=== PATIENT | female | born 1955 | race Caucasian/White ===

== ENCOUNTER 2019-10-16 09:07 | Outpatient (CLI) | payer MEDICARE, SELFPAY ==
--- NOTE | 2019-10-16 10:45 | NEURO_ITS ---
Patient Number: [id number] Impression: # Complains of no control of ankles. 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 # Clinical correlation recommended. Nerve Conduction Studies Anti Sensory Summary Table Stim Site NR Peak (ms) P-T Amp (?V) Site1 Site2 Delta-P (ms) Dist (cm) [place] (m/s) Left Sup Fibular Anti Sensory (Ant Lat Mall) 14 cm 3.6 15.2 14 cm Ant Lat Mall 3.6 16.0 44 Right Sup Fibular Anti Sensory (Ant Lat Mall) 14 cm 3.2 1.5 14 cm Ant Lat Mall 3.2 16.0 50 Left Sural Anti Sensory (Lat Mall) Calf 2.7 21.1 Calf Lat Mall 2.7 16.0 59 Right Sural Anti Sensory (Lat Mall) Calf 3.8 17.3 Calf Lat Mall 3.8 16.0 42 Motor Summary Table Stim Site NR Onset (ms) O-P Amp (mV) Site1 Site2 Delta-0 (ms) Dist (cm) [place] (m/s) Left Peroneal Motor (Vastus Med) Ankle 5.9 0.7 Popit Ankle 9.8 37.0 38 Popit 15.7 0.8 Right Peroneal Motor (Vastus Med) Ankle 6.6 1.5 Popit Ankle 8.6 33.0 38 Popit 15.2 0.8 Left Tibial Motor (Abd Flores Brev) Ankle 6.3 1.8 Knee Ankle 10.5 39.0 37 Knee 16.8 2.1 Right Tibial Motor (Abd Flores Brev) Ankle 6.0 1.1 Knee Ankle 10.3 38.0 37 Knee 16.3 0.7 F Wave Studies NR F-Lat (ms) L-R F-Lat (ms) Left Peroneal (Mrkrs) (EDB) 54.79 0.96 Right Peroneal (Mrkrs) (EDB) 55.74 0.96 Left Tibial (Mrkrs) (Abd Hallucis) 55.56 0.47 Right Tibial (Mrkrs) (Abd Hallucis) 55.09 0.47 EMG Side Muscle Nerve Root Ins Act Fibs Amp Dur Recrt Comment Right AntTibialis Dp Br Fibular L4-5 Nml Nml Nml Nml Nml Right Gastroc Tibial S1-2 Nml Nml Nml Nml Nml Right Fibularis Long Sup Br Fibular L5-S1 Nml Nml Nml Nml Nml Right Flex Dig Long Tibial L5-S2 Nml Nml Incr >12ms Reduced Right Ext Dig Brev Dp Br Fibular L5, S1 Nml Nml Incr >12ms Reduced Left AntTibialis Dp Br Fibular L4-5 Nml Nml Nml Nml Nml Left Gastroc Tibial S1-2 Nml Nml Nml Nml Nml Left Fibularis Long Sup Br Fibular L5-S1 Nml Nml Nml Nml Nml Left Flex Dig Long Tibial L5-S2 Nml Nml Incr >12ms Reduced Left Ext Dig Brev Dp Br Fibular L5, S1 Nml Nml Incr >12ms Reduced MTDD
== END 2019-10-16 09:08 | disposition home or self-care (01) ==
LOC: ANHNEURO 09:10
PROVIDERS: PCP Family Medicine; Visit Provider Podiatrist Foot & Ankle Surgery
DX: M62.81 Muscle weakness (generalized) (principal)
CPT/HCPCS: 95886; 95910

== ENCOUNTER 2021-09-21 15:50 | Outpatient (CLI) | payer MEDICARE, SELFPAY ==
--- NOTE | ~2021-09-21 | CT_ITS ---
EXAMINATION: CT abdomen pelvis wo con DATE: 09/21/2021 16:09 INDICATION: Left lower quadrant abdominal pain for 2 days TECHNIQUE: Computed tomography (CT) of the abdomen and pelvis was performed without intravenous contr ast. Automated exposure control and iterative reconstruction technique were employed. Exam dose: 213 .28 mGy-cm total exam DLP. COMPARISON: None. FINDINGS: The lung bases are clear. Normal heart size. No pericardial or pleural effusion. The liver, spleen, pancreas, adrenal glands and kidneys are unremarkable other than numerous calcific granulomas of the spleen and occasional calcified granulomas of the liver. The gallbladder is unrem arkable. No bile duct or pancreatic duct are of normal caliber. No renal mass lesion or urinary tract calculus. The urinary bladder is unremarkable. Normal caliber of the abdominal aorta. No intraperitoneal or retroperitoneal or pelvic mass lesion o r lymphadenopathy or ascites is detected. There is pericolic prominent fat stranding in the lower mid pelvis adjacent to a sigmoid diverticulu m, with thickening of the wall of the sigmoid colon, consistent with sigmoid diverticulitis. No absc ess is detected. No bowel obstruction or free air. Right sided spinal elen; prominent levoscoliosis of the lumbar and lower thoracic spine. IMPRESSION: Sigmoid diverticulitis; no abscess identified Reviewed, dictated and finalized at [facility]. Reviewed, dictated and finalized at location A.
== END 2021-09-21 15:51 | disposition home or self-care (01) ==
PROVIDERS: PCP Family Medicine; Visit Provider Nurse Practitioner Family
DX: R10.32 Left lower quadrant pain (principal); R50.9 Fever, unspecified; R19.8 Other specified symptoms and signs involving the digestive system and abdomen; K57.92 Diverticulitis of intestine, part unspecified, without perforation or abscess without bleeding
CPT/HCPCS: 74176

== ENCOUNTER 2021-11-19 11:03 | Day surgery (SDC) | payer MEDICARE, SELFPAY ==
[2021-11-02 12:09] VITALS: BMI 18.1
[2021-11-19 11:29] VITALS: BMI 18.3
[2021-11-19 11:30] VITALS: BP 160/92; PULSE 73; RESP 20; TEMP 37.5; O2SAT 99
--- NOTE | 2021-11-19 12:09 | P.PNAN_ITS ---
Anes - Initial Pre Proc Eval Procedure: Operation Date: 11/19/21 12:30 Proposed Procedures p Esophagogastroduodenoscopy - Jaswinder Booker MD Date/Time: 11/19/21 12:09 Surgeon: Jaswinder Booker MD Pre Op Diagnosis: Melena Patient Data Age: 66 Gender: F Height: 1.63 m Weight: 48.45 kg Allergies Allergy/AdvReac Type Severity Reaction Status Date / Time meperidine Allergy Mild rash Verified 11/19/21 11:28 Home Medications Medication Instructions Recorded Confirmed Type propranolol 80 mg tablet 40 mg PO Q12H #90 tabs 06/30/21 11/19/21 Rx sucralfate 1 gram tablet (Carafate) 1 g PO QID 10/20/21 11/19/21 History Patient hx anesthesia problems: none Family hx anesthesia problems: none Results Review: All pre-operative results and documents have been reviewed as part of the pre- operative evaluation. [facility] Past Medical History Medical History (Updated 11/19/21 @ 12:09 by Curly Horton MD) Diabetes Surgical History Surgical History (Updated 11/19/21 @ 12:09 by Curly Horton MD) H/O colonoscopy H/O craniotomy Family History Family History Sibling Family history of diabetes mellitus in first degree relative Father Family history of lung cancer Family history of pancreatic cancer Mother Family history of pancreatic cancer Social History Social History Social History: Smoking status: Never smoker Second hand tobacco smoke exposure: No Alcohol intake: never Substance use: never Substance use type: does not use Living arrangements: with family Gender identity (if verbalized by the patient): Female Sexual Orientation (if Verbalized by the Patient): Straight or Heterosexual Spiritual care concerns: No Anes - Eval Final PreProcedure Day of Procedure 11/19/21 12:09 Patient weight: thin Heart: regular rate and rhythm Lungs: clear to auscultation Neurological: alert and oriented Last oral intake: >/= 8 hours ASA classification: II Emergent: no Anesthetic plan: proceed Anesthesia type and monitoring: general GIVS and standard monitoring Results Review: All pre-operative results and documents have been reviewed as part of the pre- operative evaluation. Informed Consent: The patient's anesthetic plan and its attendant risks and benefits were discussed with the patient/family/POA. Questions were solicited and answers provided to the satisfaction of the patient/family/POA.
[2021-11-19] MEDS: LACTATED RINGERS 1,000 ML 150 ML IV CONT (12:13)
--- NOTE | 2021-11-19 12:32 | PM.IMHP ---
H&P: HPI History of Present Illness Date/Time: 11/19/21 12:32 Chief Complaint: Melena Narrative: this is a 66-year-old white female patient seen in evaluation at the request of Dr. Rl Baron. Patient has a history of passing black stools for 3 weeks. She ultimately developed chest pain while walking. She states it was tender in the lower chest wall. For this reason she went to the emergency room while in [place]. It was felt that she may have had bleeding was placed on Carafate. She states chest pain improved promptly. She is referred now for EGD. A CBC was performed and found to be normal. There was never any stool testing performed. Stools have now returned to normal color. Additionally patient gives a history of brief left lower quadrant discomfort which was felt to be diverticulitis she was placed on broad-spectrum antibiotics this has subsequently resolved. Patient has a past medical history of colonoscopy that was unremarkable. She presents today for EGD. She states current chest pain has resolved. She has no dysphagia. No fevers. Review of Systems Review of Systems: Review of systems noncontributory. [facility] Past Medical History Medical History (Updated 11/19/21 @ 12:35 by Jaswinder Booker MD) Diabetes Surgical History Surgical History (Updated 11/19/21 @ 12:09 by Curly Horton MD) H/O colonoscopy H/O craniotomy Family History Family History Sibling Family history of diabetes mellitus in first degree relative Father Family history of lung cancer Family history of pancreatic cancer Mother Family history of pancreatic cancer Social History Social History Social History: Smoking status: Never smoker Second hand tobacco smoke exposure: No Alcohol intake: never Substance use: never Substance use type: does not use Living arrangements: with family Gender identity (if verbalized by the patient): Female Sexual Orientation (if Verbalized by the Patient): Straight or Heterosexual Spiritual care concerns: No Meds Home Medications and Allergies Home Medications Medication Instructions Recorded Confirmed Type propranolol 80 mg tablet 40 mg PO Q12H #90 tabs 06/30/21 11/19/21 Rx sucralfate 1 gram tablet (Carafate) 1 g PO QID 10/20/21 11/19/21 History Allergies Allergy/AdvReac Type Severity Reaction Status Date / Time meperidine Allergy Mild rash Verified 11/19/21 11:28 Vital Signs Vital Signs - 24 hr 11/19/21 11:30 Temperature 99.5 F Pulse Rate 73 Respiratory Rate 20 Blood Pressure 160/92 H Pulse Oximetry 99 Exam Narrative: Physical exam reveals patient to be alert. Vital signs stable. HEENT exam is unremarkable. Patient is anicteric. Lungs are clear to auscultation and percussion. Heart is without murmur or extra sounds. Abdomen bowel sounds present soft nontender with no organomegaly. Digital external rectal exam deferred today. Assessment and Plan Assessment and plan (1) Dark stools: Code(s): R19.5 - Other fecal abnormalities Status: Acute Assessment and Plan: Patient gives a history of black stools that lasted for 3 weeks. Despite a normal CBC. Concern is this may represent melena or GI blood loss. Because of atypical chest pain an EGD is requested will be performed. (2) Atypical chest pain: Code(s): R07.89 - Other chest pain Status: Acute Assessment and Plan: Patient complains of lower substernal chest tenderness that now resolved. Appeared to improve after eating placed on Carafate. Plan is for EGD to exclude organic disease.
[2021-11-19 12:34] VITALS: BP 127/68; PULSE 70; RESP 16; O2SAT 99
[2021-11-19 12:44] VITALS: BP 131/74; PULSE 70; RESP 13; O2SAT 97
--- NOTE | 2021-11-19 12:46 | WPDANESPN ---
Anes - Prog Note Post-Op Date/Time: 11/19/21 12:46 Cardiovascular status: normal Respiratory status: normal Airway patency: baseline Mental status: baseline Post-Op hydration status: normal Vital Signs: Last Vital Signs Temp 37.5 C 11/19/21 11:30 Pulse 70 11/19/21 12:34 Resp 16 11/19/21 12:34 BP 127/68 11/19/21 12:34 Pulse Ox 99 11/19/21 12:34 O2 Del Method Room Air 11/19/21 12:34 Pain Score (VAS): 0/10 I/O: Intake & Output 11/18/21 11/19/21 11/19/21 23:59 07:59 15:59 Intake Total 250 Balance 250 Patient Feedback: Patient satisfied with anesthetic care.
[2021-11-19 12:54] VITALS: BP 131/74; PULSE 66; RESP 14; O2SAT 100
== END 2021-11-19 13:12 | disposition home or self-care (01) ==
PROVIDERS: PCP Family Medicine; Visit Provider Internal Medicine Gastroenterology
PROC: 0DJ08ZZ Inspection of Upper Intestinal Tract, Via Natural or Artificial Opening Endoscopic (ICD-10-PCS; CPT 43235; principal; 2021-11-19 12:30)
DX: K92.1 Melena (principal); R07.89 Other chest pain
CPT/HCPCS: 43235

== ENCOUNTER 2022-03-01 09:29 | Day surgery (SDC) | payer MEDICARE, SELFPAY ==
[2022-02-09 12:32] VITALS: BMI 18.3
[2022-02-15 15:05] VITALS: BMI 18.0
[2022-03-01 10:00] VITALS: BP 161/93; PULSE 65; RESP 20; TEMP 36.7; O2SAT 99
--- NOTE | 2022-03-01 10:12 | WPDANESEPPF ---
Anes - Initial Pre Proc Eval Procedure: Operation Date: 03/01/22 11:15 Proposed Procedures p Diagnostic Colonoscopy - Jsawinder Booker MD Date/Time: 03/01/22 10:12 Surgeon: Jaswinder Booker MD Pre Op Diagnosis: CIBH, LLQ abdominal pain, Abnormal weight loss Patient Data Age: 66 Gender: F Height: 1.63 m Weight: 47.6 kg Last Vital Signs Temp 36.7 C 03/01/22 10:00 Pulse 65 03/01/22 10:00 Resp 20 03/01/22 10:00 BP 161/93 H 03/01/22 10:00 Pulse Ox 99 03/01/22 10:00 O2 Del Method Room Air 03/01/22 10:00 Allergies Allergy/AdvReac Type Severity Reaction Status Date / Time meperidine Allergy Mild rash Verified 03/01/22 10:03 Home Medications Medication Instructions Recorded Confirmed Type propranolol 80 mg tablet 40 mg PO Q12H #90 tabs 06/30/21 03/01/22 Rx sodium,potassium,mag sulfates 17.5 See Rx Instructions PO .COMPLEX 02/09/22 03/01/22 Rx gram-3.13 gram-1.6 gram oral soln #354 mL (Suprep Bowel Prep Kit) Patient hx anesthesia problems: none Family hx anesthesia problems: none Results Review: All pre-operative results and documents have been reviewed as part of the pre-operative evaluation. [facility] Past Medical History Medical History (Updated 03/01/22 @ 10:12 by Curly Horton MD) Colon cancer screening Diabetes Family history of pancreatic cancer Hx of diverticulitis of colon Meningioma Surgical History Surgical History H/O colonoscopy H/O craniotomy Family History Family History Sibling Family history of diabetes mellitus in first degree relative Father Family history of lung cancer Family history of pancreatic cancer Mother Family history of pancreatic cancer Social History Social History Social History: Smoking status: Never smoker Second hand tobacco smoke exposure: No Alcohol intake: never Substance use: never Substance use type: does not use Living arrangements: with family Gender identity (if verbalized by the patient): Female Sexual Orientation (if Verbalized by the Patient): Straight or Heterosexual Spiritual care concerns: No Anes - Eval Final PreProcedure Day of Procedure 03/01/22 10:12 Patient weight: thin Heart: regular rate and rhythm Lungs: clear to auscultation Airway: Mallampati scale class II Neurological: alert and oriented Last oral intake: >/= 8 hours ASA classification: II Emergent: no Anesthetic plan: proceed Anesthesia type and monitoring: general GIVS and standard monitoring Results Review: All pre-operative results and documents have been reviewed as part of the pre-operative evaluation. Informed Consent: The patient's anesthetic plan and its attendant risks and benefits were discussed with the patient/family/POA. Questions were solicited and answers provided to the satisfaction of the patient/family/POA.
[2022-03-01] MEDS: LACTATED RINGERS 1,000 ML 150 ML IV CONT (10:26)
--- NOTE | 2022-03-01 10:40 | WPDHPUPDATE1 ---
History and Physical Update Update Date/Time: 03/01/22 10:40 History and Physical has been reviewed, including an updated exam of the patient. There are NO changes in the patient's condition. Risks, benefits, and alternatives have been discussed and questions answered. Patient agrees to proceed with procedure.
[2022-03-01 11:06] VITALS: BP 135/72; PULSE 69; RESP 16; O2SAT 96
[2022-03-01 11:16] VITALS: BP 135/72; PULSE 75; RESP 20; O2SAT 99
--- NOTE | 2022-03-01 11:21 | WPDANESPN ---
Anes - Prog Note Post-Op Date/Time: 03/01/22 11:21 Cardiovascular status: normal Respiratory status: normal Airway patency: baseline Mental status: baseline Post-Op hydration status: normal Vital Signs: Last Vital Signs Temp 36.7 C 03/01/22 10:00 Pulse 65 03/01/22 10:00 Resp 20 03/01/22 10:00 BP 161/93 H 03/01/22 10:00 Pulse Ox 99 03/01/22 10:00 O2 Del Method Room Air 03/01/22 10:00 Pain Score (VAS): 0/10 I/O: Intake & Output 02/28/22 03/01/22 03/01/22 23:59 07:59 15:59 Intake Total 300 Balance 300 Patient Feedback: Patient satisfied with anesthetic care.
[2022-03-01 11:26] VITALS: BP 135/72; PULSE 72; RESP 20; O2SAT 99
== END 2022-03-01 11:47 | disposition home or self-care (01) ==
PROVIDERS: PCP Family Medicine; Visit Provider Internal Medicine Gastroenterology
PROC: 0DJD8ZZ Inspection of Lower Intestinal Tract, Via Natural or Artificial Opening Endoscopic (ICD-10-PCS; CPT 45378; principal; 2022-03-01 11:15)
DX: K59.00 Constipation, unspecified (principal)
CPT/HCPCS: 45378

== ENCOUNTER 2022-05-28 11:59 | Outpatient (CLI) | payer MEDICARE, SELFPAY ==
--- NOTE | ~2022-05-28 | US_ITS ---
EXAMINATION: US venous doppler LE RT DATE: 05/28/2022 12:37 INDICATION: Right lower limb pain TECHNIQUE: Grayscale ultrasound images without and with compression and Doppler ultrasound images of the right lower extremity veins were obtained. COMPARISON: None. FINDINGS: The visualized portions of right common femoral vein, profunda (deep) femoral vein, femoral vein, pop liteal vein, peroneal trunk, posterior tibial veins, peroneal veins, gastrocnemius vein and greater s aphenous vein outflow are patent. IMPRESSION: 1. No deep venous thrombosis in the right lower limb. Reviewed, dictated and finalized at location A. TER
--- NOTE | ~2022-05-28 | XR_ITS ---
XR lumbar spine 2-3V 05/28/2022 15:06 Indication: Back pain. Procedure: 3 views lumbar spine Comparison: CT dated 09/21/2021 Findings: There is a Venegas leen overlying the lower thoracic and lumbar spine. There is stable le voscoliosis. No acute fracture or traumatic malalignment. Sacral foramen are symmetric. There is hete rotopic ossification lateral to the upper lumbar spine with marginal osteophytes at multiple levels. There are severe facet hypertrophy. Impression: 1: Mild-moderate lumbar spondylosis with levoscoliosis. Reviewed, dictated and finalized at location [facility]. H TECHNICIAN Impression: 1: Mild-moderate lumbar spondylosis with levoscoliosis.
--- NOTE | ~2022-05-28 | XR_ITS ---
EXAMINATION: XR hip BI 2V w AP pelvis DATE: 05/28/2022 15:06 INDICATION: Hip pain. TECHNIQUE: An anteroposterior view of the pelvis and 2 views of each hip were obtained. COMPARISON: None. FINDINGS: Bone alignment is normal. No fracture. There is mild osteoarthritis of the hips. There is l evoscoliosis of lumbar spine with elen fixation. IMPRESSION: 1. Mild osteoarthritis of the hips. Reviewed, dictated and finalized at location A. OF CUSTOMER EXPERIENCE STRATEGY
== END 2022-05-28 12:00 | disposition home or self-care (01) ==
PROVIDERS: PCP Family Medicine; Visit Provider Physician Assistant
DX: M79.604 Pain in right leg (principal); M16.0 Bilateral primary osteoarthritis of hip; M47.892 Other spondylosis, cervical region
CPT/HCPCS: 72100; 73521; 93971

== ENCOUNTER 2022-07-02 08:18 | Outpatient (CLI) | payer MEDICARE, SELFPAY ==
--- NOTE | ~2022-07-02 | NM_ITS ---
EXAMINATION: NM yadira stress w perfusion DATE: 07/02/2022 10:18 INDICATION: Other chest pain. TECHNIQUE: Rest images were obtained following intravenous administration of 10.5 mCi Tc99m tetrofosm in (Myoview). The patient was infused intravenously with Lexiscan (regadenoson). Then, 33.66 mCi Tc99 m tetrofosmin (Myoview) was administered intravenously, and stress images were obtained. Data was rec onstructed into short axis and horizontal and vertical long axis SPECT images. Gated SPECT images wer e also obtained. COMPARISON: CT abdomen and pelvis 09/21/2021 FINDINGS: There is no definite reversible or fixed perfusion abnormality to suggest ischemia or infar ction. There is no segmental wall motion abnormality. Left ventricular ejection fraction measures > 70%. IMPRESSION: 1. No definite ischemia or infarct. 2. Normal left ventricular ejection fraction measuring >70%. Reviewed, dictated and finalized at location A.
--- NOTE | 2022-07-02 08:24 | EST_ITS ---
Patient Info Name: Shira Sue Age: 67 years : 1955 Gender: Female Ht: 64 in Wt: 105 lbs BSA: 1.46 m2 HR: 76 bpm BP: 160 / 70 mmHg Heart Rhythm: Sinus Rhythm Exam Date: 07/02/2022 9:13 AM Exam Location: [facility] Stress Patient Status: Outpatient Admit Date: 07/02/2022 Staff Ordering Physician: Adela Fraser PA-C Attending Provider: Adela Fraser PA-C Exercise Technologist: Jana Meléndez CT Exercise Physician: Ashish Ace DO Exam Type: CA stress yadira w NM Study Info Indications R07.89 - Other chest pain A regadenoson stress test was performed. Summary 1. 1. Negative lexiscan stress test for ischemic ST changes by ECG criteria. 2. 2. Baseline hypertension. 3. 3. Nuclear scan to follow and will be reported separately. Please correlate with it. 4. 4. Patient informed of the above results. Protocol: Lexiscan Stress ECG Details Stage: REST Duration (min): 9 min : 25 sec HR (bpm): 80 SBP (mmHg): --- DBP (mmHg): --- Stage: REST Duration (min): 11 min : 22 sec HR (bpm): 74 SBP (mmHg): --- DBP (mmHg): --- Stage: STAGE 1 Duration (min): 0 min : 59 sec HR (bpm): 79 SBP (mmHg): --- DBP (mmHg): --- Stage: RECOVERY Duration (min): 1 min : 0 sec HR (bpm): 106 SBP (mmHg): --- DBP (mmHg): --- Stage: RECOVERY Duration (min): 2 min : 0 sec HR (bpm): 116 SBP (mmHg): --- DBP (mmHg): --- Stage: RECOVERY Duration (min): 3 min : 0 sec HR (bpm): 111 SBP (mmHg): --- DBP (mmHg): --- Stage: RECOVERY Duration (min): 4 min : 0 sec HR (bpm): 104 SBP (mmHg): --- DBP (mmHg): --- Stage: RECOVERY Duration (min): 4 min : 19 sec HR (bpm): 105 SBP (mmHg): --- DBP (mmHg): --- Rest HR: 74 bpm Peak HR: 119 bpm Rest Sys BP: 160 mmHg Peak Sys BP: 160 mmHg Max Pred HR: 151 bpm % Max Pred HR: 79 % Target HR: 128 bpm Max RPP: 19,040 bpm*mmHg Termination Reason: Completed protocol Cardiac Symptoms: Shortness of breath Total Time: 1 min : 0 sec Rest Allison BP: 70 mmHg Peak Allison BP: 72 mmHg Total Dose: 0.4 mg Resting ECG Sinus rhythm, cannot r/o septal infarct, age indeterminate, borderline T wave in high lateral leads. Stress ECG No ST changes. Arrhythmias None. Report Signatures
== END 2022-07-02 08:19 | disposition home or self-care (01) ==
PROVIDERS: PCP Family Medicine; Visit Provider Physician Assistant
DX: R07.89 Other chest pain (principal)
CPT/HCPCS: 78452; 93017; A9502; J2785

== ENCOUNTER → 2023-05-23 13:00 | Outpatient (CLI) | payer MEDICARE, SELFPAY ==
--- NOTE | ~2023-05-23 | MM_ITS ---
EXAMINATION: MM screening ana BI w aung HISTORY: Screening TECHNIQUE: Craniocaudal and mediolateral oblique 3-D tomosynthesis images were obtained and synthetic 2-D images were generated. CAD analysis was submitted and interpreted. COMPARISON: Comparison to multiple prior studies sequentially, with oldest reviewed study dated 04/24. BREAST PARENCHYMAL COMPOSITION: Dense: The breasts are heterogeneously dense, which may obscure small masses FINDINGS: There is no evidence of suspicious mass, calcification, or architectural distortion to sugg est malignancy in either breast. There has been no suspicious interval change. IMPRESSION: 1. No mammographic evidence of malignancy. 2. Recommend routine screening mammography in one year. BI-RADS Category 1: Negative Reviewed, dictated and finalized at location A. PRODUCTION FIELD SUPERVISOR
== END ==
PROVIDERS: PCP Family Medicine; Visit Provider Physician Assistant
DX: Z12.31 Encounter for screening mammogram for malignant neoplasm of breast (principal)
CPT/HCPCS: 77063; 77067

== ENCOUNTER 2024-01-05 13:29 | Outpatient (CLI) | payer MEDICARE, SELFPAY ==
--- NOTE | 2024-01-05 13:47 | ECHO_ITS ---
Patient Info Name: Shira Sue Age: 68 years : 1955 Gender: Female Ht: 64 in Wt: 113 lbs BSA: 1.52 m2 HR: 70 bpm BP: 136 / 8 mmHg Technical Quality: Fair Exam Date: 01/05/2024 2:03 PM Exam Location: [facility] Patient Status: Outpatient Admit Date: 01/05/2024 Staff Ordering Physician: Jazzmine Paul PA-C Dedicated Regional Driver: Sandeep Pacheco RDCS Attending Provider: Jazzmine Paul PA-C Exam Type: CA echo doppler color flow Study Info Indications R55 - Syncope and collapse I34.1 - Nonrheumatic mitral (valve) prolapse Complete two-dimensional, color flow and Doppler transthoracic echocardiogram is performed. Summary 1. Complete two-dimensional, color flow and Doppler transthoracic echocardiogram is performed. 2. Left ventricular chamber dimension is normal. 3. Left ventricular systolic function is normal, estimated at 65-70%. 4. The left ventricular diastolic function is grade I diastolic dysfunction. 5. E/e' 9 is minimally elevated. 6. There is mild aortic valve sclerosis. 7. There is mild mitral valve regurgitation. 8. There is trace tricuspid valve regurgitation. 9. No pulmonary hypertension, estimated pulmonary arterial systolic pressure is 37 mmHg. Left Ventricle E/e' 9 is minimally elevated. Left ventricular chamber dimension is normal. Left ventricular systolic function is normal, estimated at 65-70%. The left ventricular diastolic function is grade I diastolic dysfunction. Right Ventricle Right ventricular systolic function is normal and with normal TAPSE 2.3 cm. Right ventricular chamber dimension is normal. Left Atria Left atrial chamber dimension is normal. Right Atria Right atrial chamber dimension is normal. Aortic Valve The aortic valve is trileaflet. There is mild aortic valve sclerosis. There is no aortic valve stenosis. There is no aortic valve regurgitation. Pulmonic Valve There is no pulmonic regurgitation. Mitral Valve No mitral valve prolapse. There is no mitral valve stenosis. There is mild mitral valve regurgitation. Tricuspid Valve There is trace tricuspid valve regurgitation. No pulmonary hypertension, estimated pulmonary arterial systolic pressure is 37 mmHg. Pericardium/Pleural There is no pericardial effusion. Inferior Vena Cava Normal inferior vena cava with >50% collapse upon inspiration consistent with normal right atrial pressure, 5 mmHg. Aorta The aortic root size at the sinus of Valsalva is normal. Left Ventricular Outflow Tract Name Value Normal LVOT 2D LVOT Diameter 1.9 cm LVOT Doppler LVOT Peak Gradient 5 mmHg LVOT Mean Gradient 2 mmHg LVOT VTI 25 cm LVOT VTI/AV VTI Ratio 0.9 LVOT Stroke Volume 69 ml LVOT CO 4.4 l/min LVOT CI 2.9 l/min/m2 Pulmonic Valve Name Value Normal PV Doppler
--- NOTE | 2024-01-09 16:19 | WPDHOLTEREM ---
Holter/Event Monitor Holter/Event Monitor Date of procedure: 01/05/24 Holter/Event Procedure: 48 Hr Holter Monitor Indications: Syncope Conclusion: 1. 48 hour holter monitor on 01/05/24. 2. Underlying rhythm is sinus rhythm. HR range 54-140 bpm; average HR 85 bpm. HR at 140 bpm was at 09:51. 3. There are 23 premature supraventricular complexes. No supraventricular tachycardia. 4. There are 6 premature ventricular complexes. No ventricular tachycardia. 5. No sinoatrial or atrioventricular blocks. No significant pauses greater than 2 seconds. 6. No symptoms available for correlation.
== END 2024-01-05 13:30 | disposition home or self-care (01) ==
PROVIDERS: PCP Family Medicine; Visit Provider Physician Assistant Medical
DX: I50.30 Unspecified diastolic (congestive) heart failure (principal); I08.3 Combined rheumatic disorders of mitral, aortic and tricuspid valves; R55 Syncope and collapse
CPT/HCPCS: 93225; 93226; 93306

== ENCOUNTER 2024-11-01 18:30 | Emergency (ER) | payer MEDICARE, SELFPAY ==
--- NOTE | 2024-11-01 18:31 | ED_ITS ---
HPI - URI/Sore Throat General Chief Complaint: Ear Stated Complaint: EARS CLOGGED/HEADACHE Time Seen by Provider: 11/01/24 18:31 Source: patient Mode of arrival: ambulatory Limitations: no limitations History of Present Illness HPI Narrative: Patient is a 69-year-old female who presents with dull headache, congestion for 2 weeks. Reports ears foot clogged this morning. Has tried [id number] medications with no relief. Denies any fever, chills, nausea, vomiting, diarrhea. Related Data Allergies Allergy/AdvReac Type Severity Reaction Status Date / Time meperidine Allergy Mild rash Verified 02/14/24 09:51 Review of Systems Review of Systems: All systems reviewed & are unremarkable except as noted in HPI and below Constitutional: Constitutional: Denies chills, Denies fatigue, Denies fever(s), Reports headache(s), Denies malaise and Denies weakness Eyes: Eyes: Denies blurry vision, Denies itchy eyes and Denies loss of vision ENT: Reports otalgia, Denies headache(s), Reports nasal congestion, Denies sinus pain and Denies sore throat Cardiovascular: Cardiovascular: Denies chest pain, Denies irregular heart rhythm and Denies dyspnea Respiratory: Respiratory: Denies cough and Denies dyspnea Gastrointestinal: Gastrointestinal: Denies abdominal pain, Denies diarrhea, Denies nausea and Denies vomiting Musculoskeletal: Musculoskeletal: Denies back pain, Denies myalgias and Denies arthralgias Integumentary/Breasts: Skin/Breast: Denies pruritus and Denies rash Neurologic: Denies headache(s), Denies loss of vision and Denies weakness Psychiatric: Psychiatric: Reports no additional psychiatric complaints Endocrine: Endocrine: Denies fatigue Allergic/Immunologic: Allergic/Immunologic: Denies itchy eyes PMFSH Past Medical History Medical History Hypertension Irritable bowel syndrome with constipation Meningioma Colon cancer screening Family history of pancreatic cancer Hx of diverticulitis of colon Diabetes Surgical History Surgical History History of bilateral cataract extraction H/O colonoscopy H/O craniotomy Family History Family History Sibling Family history of diabetes mellitus in first degree relative Father Family history of lung cancer Family history of pancreatic cancer Mother Family history of pancreatic cancer Social History Social History Social History: Caffeine-coffee Smoking status: Never smoker Second hand tobacco smoke exposure: No Alcohol intake: never Substance use: never Substance use type: does not use Lack of Transportation: No Lack of Food: Never True Current Housing: I Have Housing Concerned About Future Housing: No Difficulty Paying Gas/Electric Bills: No Difficulty Paying for Meds: No Currently Unemployed: No Education: Bachelor's Degree Difficulty w/ Childcare or Family Care: No Living arrangements: with family Occupation/Education: retired Gender identity (if verbalized by the patient): Female Sexual Orientation (if Verbalized by the Patient): Straight or Heterosexual Spiritual care concerns: No Comments At time of signature, agree with nursing past medical, surgical, social and family history. There is no relevant family history pertinent to the presenting complaint. Exam Const: General: cooperative, healthy appearing, comfortable, no acute distress and well nourished Nutritional Appearance: well nourished Orientation/consciousness: patient oriented x3 Limitations: no limitations HENMT: Head: normal to inspection, normocephalic and atraumatic Ears: hearing grossly normal bilaterally, external ears normal, no periauricular adenopathy, Abnormal EAC present edema bilateral (left worse than right), EAC tenderness bilateral and otic discharge purulent bilateral and unable to visualize TM bilaterally Face/Nose/Sinus: Normal external nose present, Abnormal mucous membranes and turbinates present erythematous bilateral and diffuse, normal facial exam and face symmetric Face and sinus: normal facial exam, face symmetric and sinus tenderness frontal Mouth: Yes Normal oral and palatal mucosa present, Yes lip normal, Yes tongue normal, Yes Normal salivary glands and ducts present, Yes oropharynx normal and Yes moist mucous membranes Teeth and gingiva: dentition normal Throat: posterior oropharynx normal, tonsils normal and uvula midline Eyes: General: appearance normal, both eyes and all related structures Alignment and Position: alignment normal and position normal Periorbital: periorbital findings normal Eyelids: eyelids normal Pupils: Equal, round and reactive pupils present Neck: Neck: normal visual inspection, full ROM, no lymphadenopathy and supple Chest: Chest palpation & inspection: normal inspection of the chest and normal palpation of entire chest wall Resp: Effort & Inspection: normal respiratory effort and able to speak in complete sentences Auscultation: clear to auscultation bilaterally, no crackles, no rales, no rhonchi and no wheezes Cardio: Rate: regular rate Rhythm: regular rhythm Heart sounds: S1 normal heart sound present and S2 normal heart sound present GI: Inspection: normal to inspection Skin: General skin exam: normal color and no rashes or lesions noted Neuro: General: patient oriented x3 and moves all extremities Cranial nerves: Yes Equal, round and reactive pupils present Speech: normal speech Gait exam (Neuro): Normal gait present Extrem: General: normal to inspection, full ROM and no edema Psych: Appearance: grossly normal and well kempt Mental Status: mental status grossly normal Speech and movement: Normal speech and movement present Affect: normal affect Attitude: cooperative Thought process: Normal thought process present Course Course Emergency Course: Discharge instructions reviewed with patient, as well as provided in writing per nursing staff. The instructions also include specific and strict return/GO TO THE ER as well as f/u information. All questions have been answered, and the patient deny any further questions with discharge and discharge plan. Portions of this record may have been created with voice recognition software Level of Care: Express Care Visit Vital Signs Vital signs: Vital Signs Temperature 36.2 C L 11/01/24 18:41 Pulse Rate 94 11/01/24 18:41 Respiratory Rate 16 11/01/24 18:41 Blood Pressure 147/87 H 11/01/24 18:41 Pulse Oximetry 99 11/01/24 18:41 Temperature 36.2 C L 11/01/24 18:41 Pulse Rate 94 11/01/24 18:41 Respiratory Rate 16 11/01/24 18:41 Blood Pressure 147/87 H 11/01/24 18:41 Pulse Oximetry 99 11/01/24 18:41 Reviewed MDM - URI/Sore Throat MDM Narrative Medical decision making narrative: Ear wax placed in each ear to aid in the distribution of antibiotic ear drops. Pt well hydrated appearing, in no respiratory distress, hemodynamically stable. Recommend supportive care. The patient is stable at time of discharge the clinical impression was discussed and the patient was given the opportunity to ask questions, which were addressed as completely as possible given the information available at present. Anticipatory guidance and return to care precautions were discussed and the importance of primary care follow-up was stressed and encouraged. The patient voiced understanding of the plan, indications to return, and the need for follow-up. Exam findings show no acute concerns or changes Patient is appropriate for outpatient treatment and follow-up. Differential diagnosis considered: Xavier virus, strep pharyngitis, allergic rhinitis, upper respiratory tract infection, sinusitis, rhinosinusitis, nasopharyngitis. viral pharyngitis, otitis media, otitis externa, otitis effusion, foreign body, cerumen impaction, viral syndrome, and influenza.? Medical Records Attestation: I reviewed the patient's medical records. Discharge Plan Discharge Clinical Impression: Otitis externa Qualifiers: Otitis externa type: unspecified type Chronicity: acute Laterality: bilateral Qualified Code(s): H60.503 - Unspecified acute noninfective otitis externa, bilateral Sinusitis Qualifiers: Sinusitis location: frontal Chronicity: acute Recurrence: non-recurrent Qualified Code(s): J01.10 - Acute frontal sinusitis, unspecified Patient Disposition: Home Condition: Stable Instructions: Sinusitis (ED), Swimmer's Ear (GEN) Additional Instructions: Symptomatic treatment of a sinus infection aims to relieve symptoms. These treatments do not shorten the duration of illness. Nonprescription pain medications, such as acetaminophen (eg, Tylenol) or ibuprofen (eg, Motrin, Advil), are recommended for pain. Flushing the nose and sinuses with a saline solution several times per day has been proven to decrease pain associated with congestion and shorten the duration of symptoms. Nasal steroids (such as Flonase, 2 sprays in each nostril daily) can help to reduce swelling inside the nose, usually within two to three days. These drugs have few side effects and relieve symptoms in most people. Oral decongestants (pseudoephedrine and phenylephrine) may be helpful if you have associated symptoms of ear pain or fullness. Nasal decongestant sprays, including oxymetazoline (Afrin) and phenylephrine (Kasi-Synephrine), can be used to temporarily treat congestion. However, these sprays should not be used for more than two to three days due to the risk of rebound congestion (when the nose becomes congested constantly unless the medication is used repeatedly), possible addiction, and long-term consequences of frequent use, including persistent nasal dryness and crusting, which is very difficult to treat once it has developed. Medications to thin secretions (such as guaifenesin) may help to clear mucus. Please follow-up with your primary care doctor in the next 1-2 days. If you cannot follow-up with your primary care doctor please go to the ED for any urgent issues. If you have any worsening of symptoms or any other concerns please go to the ED immediately. -Ear drops as directed for 7-10 days until the pain and swelling are gone. -When administer drug into the affected ear; make sure to lay down with the affected ear facing upward, message the ear canal to help the drops reach the medial end of the canal, then remain in that position for at least 5 minutes. -Avoid using cotton tipped applicator for ears cleaning -Avoid exposing swimming or exposing the affected ear to water during the treatment period Take or alternate tylenol or ibuprofen every 4 - 6 hours if needed for pain. Follow up with primary care provider if condition is not improving in 7 days or sooner if there is new concern. Patient Language: Micronesian Prescriptions: New ofloxacin 0.3 % drops 10 drp EACH EAR Q12H 7 Days Qty: 10 1RF amoxicillin-pot clavulanate 875-125 mg tablet 1 tablet PO Q12H 10 Days Qty: 20 0RF No Action propranolol 80 mg tablet 80 mg PO Q12H Qty: 180 1RF Follow-up/Referrals: Rl Baron MD [Primary Care Provider] - 3 Days Time of Disposition: 19:09
[2024-11-01 18:41] VITALS: BP 147/87; PULSE 94; RESP 16; TEMP 36.2; O2SAT 99
== END 2024-11-01 19:16 | disposition home or self-care (01) ==
PROVIDERS: Emergency Provider Nurse Practitioner Family; PCP Family Medicine
DX: H60.503 Unspecified acute noninfective otitis externa, bilateral (principal); J01.10 Acute frontal sinusitis, unspecified; I10 Essential (primary) hypertension; E11.9 Type 2 diabetes mellitus without complications
CPT/HCPCS: 99213; G0463

== ENCOUNTER 2025-01-10 09:20 | Outpatient (CLI) | payer MEDICARE, SELFPAY ==
--- NOTE | ~2025-01-10 | XR_ITS ---
EXAMINATION: XR knee LT 3V, 01/10/2025 10:15 CDT HISTORY: LT KNEE PAIN SWELLING SINCE TUESDAY COMPARISON: No comparisons available. Findings: No acute fracture or malalignment. No significant degenerative changes. Soft tissues unremarkable. Impression: No acute fracture or malalignment. Reviewed, dictated and finalized at location P. Impression: No acute fracture or malalignment.
--- NOTE | ~2025-01-10 | US_ITS ---
EXAMINATION: US venous doppler [facility] DATE: 01/10/2025 10:20 INDICATION: Left lower limb pain and swelling TECHNIQUE: Grayscale ultrasound images without and with compression and Doppler ultrasound images of the left lower extremity veins were obtained. COMPARISON: None. FINDINGS: The visualized portions of left common femoral vein, profunda (deep) femoral vein, femoral vein, popliteal vein, peroneal veins, posterior tibial veins, gastrocnemius vein and greater saphenous vein outflow are patent. Moderate-sized left knee joint effusion both at the suprapatellar pouch and at the posterior recesses of the knee. IMPRESSION: 1. No deep venous thrombosis in the left lower limb. 2. Moderate-sized left knee joint effusion. Reviewed, dictated and finalized at location A.
== END 2025-01-10 09:21 | disposition home or self-care (01) ==
PROVIDERS: PCP Family Medicine; Visit Provider Physician Assistant Medical
DX: M25.462 Effusion, left knee (principal); M25.562 Pain in left knee; M79.89 Other specified soft tissue disorders; M79.662 Pain in left lower leg
CPT/HCPCS: 73562; 93971